=== PATIENT | female | born 1985 | race Caucasian/White ===

== ENCOUNTER → 2016-09-07 | Outpatient (CLI) | payer BC | LOC: MW.CHOBGYN 09:10 | PROVIDERS: ATTEND Obstetrics & Gynecology | DX: E11.9 Type 2 diabetes mellitus without complications (principal) | CPT/HCPCS: 81003 ==

== ENCOUNTER → 2016-10-05 | Outpatient (CLI) | payer BC | LOC: MW.CHOBGYN 09:03 | PROVIDERS: ATTEND Obstetrics & Gynecology | DX: Z34.80 Encounter for supervision of other normal pregnancy, unspecified trimester (principal) | CPT/HCPCS: 36415; 81003; 85027; 86592; 86762; 86803; 86850; 86900; 86901; 87086; 87088; 87186; 87340; 87389 ==

== ENCOUNTER → 2016-10-29 | Outpatient (CLI) | payer BC ==
--- NOTE | 2016-11-01 14:21 | US ---
Examination: Greater than 14 weeks transabdominal ultrasound with color Doppler and M-mode evaluatio n. HISTORY: Type 2 diabetes FINDINGS: LMP is 06/12/2016 EVALUATION: Posterior placenta with a breech lie and grade 1. Visually amniotic fluid is withi n normal limits. Overall findings have is obscured secondary to body habitus. Three-vessel cord is seen. Ventricles are within normal limits. Four chamber heart is noted. Heart rate is 138 beats per minute. BIOMETRY AND GESTATIONAL AGE: Biparietal diameter 4.7 cm. The abdominal circumference measures 14.8 cm. The femoral length is 3.1 cm with head circumference of 17.6 cm. Gestational age is 19 weeks and 6 days. The expected date of delivery is approximately 03/19/2017. Fetus weight is 322 grams. Other detail anatomy summarized into PACs sheet after the images. No anatomical anomalies. IMPRESSION: Single active IU with breech fetus. Posterior placenta with grade 1, no placenta previa. N o anomalies are seen. Amniotic fluid appears within normal limits.
== END ==
LOC: MW.US 09:10
PROVIDERS: ATTEND Obstetrics & Gynecology
DX: E11.9 Type 2 diabetes mellitus without complications (principal)
CPT/HCPCS: 76805; 76805-26

== ENCOUNTER 2018-10-21 19:40 | Emergency (ER) | payer BC ==
[2018-10-21] MEDS ORDERED: Sodium Chloride 0.9% 1,000 ML IV ONE (19:56)
--- NOTE | 2018-10-21 19:56 | EDM.PDOC ---
ED HPI GENERAL MEDICAL PROBLEM - General Chief Complaint: Abdominal Pain Stated Complaint: abdomen and back pain Time Seen by Provider: 10/21/18 19:49 - History of Present Illness INITIAL COMMENTS - FREE TEXT/NARRATIVE: HISTORY AND PHYSICAL: History of present illness: Patient 33-year-old female history diabetes who presents with a concern of positive test at home several weeks prior with vaginal bleeding subsequent and upper abdominal pain she denies fever chills nausea vomiting or other complaints denies prior abdominal surgery denies history of known gallbladder or pancreatic disease. Review of systems: As per history of present illness and below otherwise all systems reviewed and negative. Past medical history: As per history of present illness and as reviewed below otherwise noncontributory. Surgical history: As per history of present illness and as reviewed below otherwise noncontributory. Social history: No reported history of drug or alcohol abuse. Family history: As per history of present illness and as reviewed below otherwise noncontributory. Physical exam: HEENT: Atraumatic, normocephalic, pupils reactive, negative for conjunctival pallor or scleral icterus, mucous membranes moist, throat clear, neck supple, nontender, trachea midline. Lungs: Clear to auscultation, breath sounds equal bilaterally, chest nontender. Heart: S1S2, regular, negative for clicks, rubs, or JVD. Abdomen: Soft, nondistended, no localized tenderness. Negative for masses or hepatosplenomegaly. Negative for costovertebral tenderness. Pelvis: Stable nontender. Genitourinary: Deferred. Rectal: Deferred. Extremities: Atraumatic, negative for cords or calf pain. Neurovascular unremarkable. Neuro: Awake, alert, oriented. Cranial nerves II through XII unremarkable. Cerebellum unremarkable. Motor and sensory unremarkable throughout. Exam nonfocal. Diagnostics: CBC CMP lipase quantitative beta-hCG UA abdominal ultrasound pelvic ultrasound Therapeutics: Saline 1 L bolus Impression: #1 abdominal pain #2 history of positive home test #3 vaginal bleeding Definitive disposition and diagnosis as appropriate pending reevaluation and review of above. upper abdomen Pain Score (Numeric/FACES): 8 - Related Data Allergies Allergy/AdvReac Type Severity Reaction Status Date / Time No Known Allergies Allergy Verified 01/10/17 09:28 Home Meds: Home Meds Insulin Lispro [HumaLOG] 0 units SQ ASDIRECTED 10/21/18 [History] ED ROS GENERAL - Review of Systems Review Of Systems: ROS reveals no pertinent complaints other than HPI. ED EXAM, GENERAL - Physical Exam Exam: See Below (The dictation) Course - Vital Signs Last Recorded V/S: Last Vital Signs Temp 36.1 C 10/21/18 19:45 Pulse 87 10/21/18 21:11 Resp 18 10/21/18 21:11 BP 134/84 10/21/18 21:11 Pulse Ox 97 10/21/18 21:11 - Orders/Labs/Meds Labs: Laboratory Tests 10/21/18 10/21/18 10/21/18 Range/Units 20:07 20:07 20:07 WBC 14.86 H (4.0-11.0) K/uL RBC 4.67 (4.30-5.90) M/uL Hgb 14.7 (12.0-16.0) g/dL Hct 42.9 (36.0-46.0) % MCV 91.9 (80.0-98.0) fL MCH 31.5 (27.0-32.0) pg MCHC 34.3 (31.0-37.0) g/dL RDW Std Deviation 41.4 (28.0-62.0) fl RDW Coeff of Franck 12 (11.0-15.0) % Plt Count 270 (150-400) K/uL MPV 11.70 (7.40-12.00) fL Neut % (Auto) 71.8 (48.0-80.0) % Lymph % (Auto) 22.1 (16.0-40.0) % Pender % (Auto) 4.8 (0.0-15.0) % Eos % (Auto) 1.0 (0.0-7.0) % Baso % (Auto) 0.3 (0.0-1.5) % Neut # (Auto) 10.7 H (1.4-5.7) K/uL Lymph # (Auto) 3.3 H (0.6-2.4) K/uL Pender # (Auto) 0.7 (0.0-0.8) K/uL Eos # (Auto) 0.2 (0.0-0.7) K/uL Baso # (Auto) 0.1 (0.0-0.1) K/uL Nucleated RBC % 0.0 /100WBC Nucleated RBCs # 0 K/uL Sodium 137 (136-145) mmol/L Potassium 3.7 (3.5-5.1) mmol/L Chloride 102 (98-107) mmol/L Carbon Dioxide 27.4 (21.0-32.0) mmol/L BUN 7 (7.0-18.0) mg/dL Creatinine 0.6 (0.6-1.0) mg/dL Est Cr Clr Drug Dosing TNP Estimated GFR (MDRD) > 60.0 ml/min Glucose 336 H (74-106) mg/dL Calcium 9.5 (8.5-10.1) mg/dL Total Bilirubin 0.5 (0.2-1.0) mg/dL AST 24 (15-37) IU/L ALT 56 (14-63) IU/L Alkaline Phosphatase 131 H (46-116) U/L Total Protein 7.9 (6.4-8.2) g/dL Albumin 3.8 (3.4-5.0) g/dL Globulin 4.1 H (2.6-4.0) g/dL Albumin/Globulin Ratio 0.9 (0.9-1.6) Lipase 71 L (73-393) U/L HCG, Quant mIU/mL Urine Color Urine Appearance Urine pH (5.0-8.0) Ur Specific [place] (1.001-1.035) Urine Protein (NEGATIVE) mg/dL Urine Glucose (UA) (NEGATIVE) mg/dL Urine Ketones (NEGATIVE) mg/dL Urine Occult Blood (NEGATIVE) Urine Nitrite (NEGATIVE) Urine Bilirubin (NEGATIVE) Urine Urobilinogen (<2.0) EU/dL Ur Leukocyte Esterase (NEGATIVE) Urine RBC (0-2/HPF) Urine WBC (0-5/HPF) Ur Epithelial Cells (NONE-FEW) Urine Bacteria (NEGATIVE) Blood Type O NEGATIVE 10/21/18 10/21/18 Range/Units 20:07 20:12 WBC (4.0-11.0) K/uL RBC (4.30-5.90) M/uL Hgb (12.0-16.0) g/dL Hct (36.0-46.0) % MCV (80.0-98.0) fL MCH (27.0-32.0) pg MCHC (31.0-37.0) g/dL RDW Std Deviation (28.0-62.0) fl RDW Coeff of Franck (11.0-15.0) % Plt Count (150-400) K/uL MPV (7.40-12.00) fL Neut % (Auto) (48.0-80.0) % Lymph % (Auto) (16.0-40.0) % Pender % (Auto) (0.0-15.0) % Eos % (Auto) (0.0-7.0) % Baso % (Auto) (0.0-1.5) % Neut # (Auto) (1.4-5.7) K/uL Lymph # (Auto) (0.6-2.4) K/uL Pender # (Auto) (0.0-0.8) K/uL Eos # (Auto) (0.0-0.7) K/uL Baso # (Auto) (0.0-0.1) K/uL Nucleated RBC % /100WBC Nucleated RBCs # K/uL Sodium (136-145) mmol/L Potassium (3.5-5.1) mmol/L Chloride (98-107) mmol/L Carbon Dioxide (21.0-32.0) mmol/L BUN (7.0-18.0) mg/dL Creatinine (0.6-1.0) mg/dL Est Cr Clr Drug Dosing Estimated GFR (MDRD) ml/min Glucose (74-106) mg/dL Calcium (8.5-10.1) mg/dL Total Bilirubin (0.2-1.0) mg/dL AST (15-37) IU/L ALT (14-63) IU/L Alkaline Phosphatase (46-116) U/L Total Protein (6.4-8.2) g/dL Albumin (3.4-5.0) g/dL Globulin (2.6-4.0) g/dL Albumin/Globulin Ratio (0.9-1.6) Lipase (73-393) U/L HCG, Quant 372.0 mIU/mL Urine Color YELLOW Urine Appearance HAZY Urine pH 5.5 (5.0-8.0) Ur Specific [place] 1.020 (1.001-1.035) Urine Protein NEGATIVE (NEGATIVE) mg/dL Urine Glucose (UA) >=1000 (NEGATIVE) mg/dL Urine Ketones NEGATIVE (NEGATIVE) mg/dL Urine Occult Blood SMALL H (NEGATIVE) Urine Nitrite NEGATIVE (NEGATIVE) Urine Bilirubin NEGATIVE (NEGATIVE) Urine Urobilinogen 0.2 (<2.0) EU/dL Ur Leukocyte Esterase NEGATIVE (NEGATIVE) Urine RBC 1-3 (0-2/HPF) Urine WBC 2-4 (0-5/HPF) Ur Epithelial Cells FEW (NONE-FEW) Urine Bacteria FEW (NEGATIVE) Blood Type Meds: Medications Discontinued Medications Generic Name Dose Route Start Last Admin Trade Name Freq PRN Reason Stop Dose Admin Sodium Chloride 1,000 mls @ 999 mls/hr 10/21/18 19:56 10/21/18 20:48 Normal Saline IV 10/21/18 20:56 999 mls/hr STAT ONE Administration Ondansetron HCl 4 mg 10/21/18 19:57 10/21/18 20:49 Zofran IVPUSH 10/21/18 19:58 4 mg ONETIME ONE Administration Departure - Departure Time of Disposition: 21:24 Disposition: Home, Self-Care 01 Condition: Good Clinical Impression: Abdominal pain, demise, Cholelithiasis - Discharge Information Referrals: PCP,None [Primary Care Provider] - Forms: ED Department Discharge Additional Instructions: The following information is given to patients seen in the emergency department who are being discharged to home. This information is to outline your options for follow-up care. We provide all patients seen in our emergency department with a follow-up referral. The need for follow-up, as well as the timing and circumstances, are variable depending upon the specifics of your emergency department visit. If you don't have a primary care physician on staff, we will provide you with a referral. We always advise you to contact your personal physician following an emergency department visit to inform them of the circumstance of the visit and for follow-up with them and/or the need for any referrals to a consulting specialist. The emergency department will also refer you to a specialist when appropriate. This referral assures that you have the opportunity for followup care with a specialist. All of these measure are taken in an effort to provide you with optimal care, which includes your followup. Under all circumstances we always encourage you to contact your private physician who remains a resource for coordinating your care. When calling for followup care, please make the office aware that this follow-up is from your recent emergency room visit. If for any reason you are refused follow-up, please contact the [facility] emergency department at and asked to speak to the emergency department charge nurse. Follow-up [employer] Dr. green call for appointment diet as discussed return as needed as discussed
[2018-10-21] MEDS ORDERED: Ondansetron 4 MG/2 ML SDV IVPUSH ONE (19:57)
[2018-10-21 20:46] LABS: CHLORIDE,CL 102 mmol/L (98-107); SODIUM,NA 137 mmol/L (136-145)
--- NOTE | 2018-10-21 21:50 | US ---
HISTORY: Abdominal pain. TECHNIQUE: Limited abdominal ultrasound. COMPARISON: No prior. FINDINGS: Portions of the pancreatic body and tail are obscured by bowel gas. No abnormality of the visualized portions of the pancreas. The liver is fatty infiltrated and enlarged measuring 21.8 cm. No focal mass appreciated. No intrahepatic or extrahepatic biliary ductal dilatation. The extrahepatic bile duct measures 4 mm which is within normal limits. Gallstone. Gallbladder is nondistended. No gallbladder wall thickening or surrounding fluid. No abnormality involving visualized right kidney. IMPRESSION: 1. Gallstone. No gallbladder wall thickening or pericholecystic fluid. 2. No biliary ductal dilatation. 3. Enlarged fatty infiltrated liver. Dictated by Eliseo Morrison MD @ 10/21/2018 9:49:03 PM Dictated by: Eliseo Morrison MD @ 10/21/2018 21:49:06 (Electronically Signed)
--- NOTE | 2018-10-21 21:53 | US ---
HISTORY: . Pelvic pain. TECHNIQUE: First trimester obstetric ultrasound with transvaginal imaging. FINDINGS: There is an intrauterine gestation with a crown-rump length of 1.45 cm. This would correlate with a 7 week, 5 day gestation. No cardiac activity is detected compatible with embryonic demise. 1.2 x 0.9 x 0.2 cm subchorionic hemorrhage is present. - Right ovary measures 1.9 x 1.3 x 1.0 cm in size. Left ovary measures 1.5 x 2.4 x 1.5 cm in size. The ovaries appear unremarkable. IMPRESSION: 1. Intrauterine gestation with a crown-rump length of 1.45 cm which would correlate with a 7 week, 5 day gestation. No cardiac activity is detected compatible with embryonic demise. 2. Small subchorionic hemorrhage measuring 1.2 x 0.9 x 0.2 cm. Dictated by Eliseo Morrison MD @ 10/21/2018 9:51:44 PM Dictated by: Eliseo Morrison MD @ 10/21/2018 21:51:50 (Electronically Signed)
[2018-10-21 22:46] VITALS: BP 117/62
== END 2018-10-21 22:25 | disposition home or self-care (01) ==
LOC: MW.ED 19:40
DX: O02.1 Missed abortion (principal); O99.611 Diseases of the digestive system complicating pregnancy, first trimester; K80.20 Calculus of gallbladder without cholecystitis without obstruction; Z3A.01 Less than 8 weeks gestation of pregnancy
CPT/HCPCS: 76705; 76801; 80053; 81001; 83690; 84702; 85025; 86900; 86901; 96361; 96374; 99284; J2405; J7040